=== PATIENT | female | born 1945 | race Caucasian/White ===

== ENCOUNTER 2017-04-26 06:37 | Emergency (ER) | payer OTHER ==
[~2017-04-26] VITALS: Ht 152.4 cm; Wt 71.2 kg
[2017-04-26 06:50] VITALS: Ht 152.4 cm; Wt 71.2 kg
[2017-04-26 08:39] LABS: BASOPHIL % 0.4 % (0-2); PLATELET COUNT 288 x10^3mcL (130-400)
[2017-04-26 08:40] LABS: RED CELL DISTRIBUTION WIDTH 15.9 % (11.5-14.5)
[2017-04-26 09:03] VITALS: BP 148/94
== END 2017-04-26 09:03 | disposition home or self-care (01) ==
LOC: ED 06:37
PROVIDERS: Emergency Medicine
DX: R04.0 Epistaxis (principal)
CPT/HCPCS: 36415